=== PATIENT | female | born 1990 | race African-American/Black ===

== ENCOUNTER → 2021-08-23 | Outpatient (CLI) | payer SELFPAY | END | disposition home or self-care (01) | LOC: XYW 01:45 → UNDOADMOB 01:45 → LDRP 01:45 → UNDODISOB 02:01 → EDSTATUS 09-06 12:53 | PROVIDERS: ATTEND Obstetrics & Gynecology | DX: O62.9 Abnormality of forces of labor, unspecified (principal); Z3A.37 37 weeks gestation of pregnancy | CPT/HCPCS: G0378 ==